=== PATIENT | female | born 1940 | race Two or more races ===

== ENCOUNTER 2019-03-20 08:58 | Inpatient (IN) | payer OTHER, MEDICARE ==
[~2019-03-20] VITALS: Ht 162.6 cm; Wt 64.0 kg
[2019-03-20 10:10] LABS: Basophils # (auto) 0 uL; Basophils % (auto) 0.6 % (0.0-2.0); Eosinophils # (auto) 0 uL; Eosinophils % (auto) 0.1 % (0.0-7.0); Hematocrit 37.8 % (36.0-46.0); Hemoglobin 12.2 g/dL (12.2-16.2); Lymphocytes % (auto) 12.4 % (10.0-50.0); Mean Corpuscular Hemoglobin 29.9 pg (28.0-32.0); Mean Corpuscular Hgb Conc. 32.4 g/dL (32.0-36.0); Mean Corpuscular Volume 92.4 fL (80.0-100.0); Monocytes # (auto) 0.5 uL; Monocytes % (auto) 6.5 % (0.0-12.0); Neutrophils # (auto) 6.4 uL; Neutrophils % (auto) 80.4 % (37.0-80.0); Platelet Count (auto) 308 10^3/uL (140-450); Red Blood Cells 4.09 10^6/uL (4.0-5.20); Red Cell Distribution Width 14.7 % (11.8-14.3); White Blood Cell 7.9 10^3/uL (4.4-10.8)
[2019-03-20 10:26] LABS: BUN/Creatinine Ratio 24.5; Calcium 7.9 mg/dL (8.5-10.1); Potassium 4.2 mmol/L (3.5-5.1)
[2019-03-20 10:29] LABS: Bilirubin, Total 0.7 mg/dL (0.2-1.0); Total Protein 6.4 g/dL (6.4-8.2)
[2019-03-20] MEDS ORDERED: ALBUTEROL SULF 2.5 MG/0.5ML(0.5%) NEB SOLN NEB ONE (13:15)
[2019-03-20] MEDS ORDERED: cefTRIAXone 1GM/50ML D5W 50 ML IV ONE (13:15)
[2019-03-20] MEDS ORDERED: FUROSEMIDE 40 MG/4 ML VIAL IV ONE (13:15)
[2019-03-20] MEDS ORDERED: IPRATROPIUM BROM 0.5 MG/2.5ML INH SOL NEB ONE (13:15)
[2019-03-20] MEDS ORDERED: [UNRECOGNIZED DRUG - CODE] PO (14:34)
[2019-03-20] MEDS ORDERED: ALBUAER3 (14:34)
[2019-03-20] MEDS ORDERED: LEVO-28 (14:34)
[2019-03-20] MEDS ORDERED: IOHEXOL 350 MG/ML 100ML IJ ONE (15:41)
[2019-03-20 15:48] LABS: Urine Bacteria NONE SEEN /hpf (None Seen); Urine Blood TRACE /uL (Negative); Urine Hyaline Cast FEW /lpf (0 - 2); Urine Specific Gravity 1.011 (1.001-1.035); Urine WBC 2 /hpf (0 - 5)
[2019-03-20] MEDS ORDERED: methylPREDNISolone SOD SUCC 125 MG/2 ML VL IV ONE (16:00)
[2019-03-20] MEDS ORDERED: diphenhdrAMINE HCL 50 MG/1 ML VL IV ONE (16:00)
[2019-03-20] MEDS ORDERED: methylPREDNISolone SOD SUCC 125 MG/2 ML VL ONE (16:03)
[2019-03-20] MEDS ORDERED: diphenhdrAMINE HCL 50 MG/1 ML VL ONE (16:03)
[2019-03-20] MEDS ORDERED: TEMAZEPAM 15 MG CAP PO PRN (17:15)
[2019-03-20] MEDS ORDERED: ACETAMINOPHEN 500 MG TAB PO PRN (17:15)
[2019-03-20] MEDS ORDERED: PROMETHAZINE HCL 25 MG/ML 1ML IV PRN (17:15)
[2019-03-20] MEDS ORDERED: MORPHINE SULFATE 4 MG/ML SYR/VIAL IV PRN (17:15)
[2019-03-20] MEDS ORDERED: DEXTROSE (50%) 50ML SYRG IV PRN (17:15)
[2019-03-20] MEDS ORDERED: traMADol HCL 50 MG TAB PO PRN (17:15)
[2019-03-20] MEDS ORDERED: ALBUTEROL SULF 2.5 MG/0.5ML(0.5%) NEB SOLN NEB PRN (17:15)
[2019-03-20] MEDS ORDERED: LACTULOSE 20Gm/30ML SOLN PO PRN (17:15)
[2019-03-20] MEDS ORDERED: NITROGLYCERIN 0.4 MG SL TAB SL PRN (17:15)
[2019-03-20] MEDS ORDERED: MORPHINE SULF INJ 2 MG/ML SYRINGE 1ML IV PRN (17:15)
[2019-03-20] MEDS: ALBUTEROL SULF 2.5 MG/0.5ML(0.5%) NEB SOLN NEB SCH (19:27)
[2019-03-20] MEDS: IPRATROPIUM BROM 0.5 MG/2.5ML INH SOL NEB SCH (19:27)
[2019-03-20 19:31] VITALS: BP 146/70
[2019-03-20] MEDS: InsuLIN REG 1unit/0.01ml Soln (100units/ml) SC SCH ×2 (20:36→23:17)
[2019-03-20] MEDS: ACCU-CHEK COMFORT CURVE STRIP VI SCH ×2 (20:36→23:25)
--- NOTE | 2019-03-20 21:21 | NUR ---
Telemetry admit from LEOPOLDO SHEEHAN,SLIM admitted to Telemetry unit; no SBAR received. Patient oriented by Tan,RN resource RN and LUANN ROMERO, primary RN, to unit, room, bed, and unit policies regarding patient care and visiting hours. Patient now on continuous telemetry monitoring, tele box #26 and telemetry reading on arrival to unit is [address] Patient placed on bedside oxygen @ 4lpm via n/c, weighed by bedscale and encouraged to call if she needs something. All questions and concerns addressed, patient verbalized understanding. Bed in low position and locked. HOB in high Lau's. Pt's call light by her R hand.
[2019-03-20 21:30] VITALS: BP 134/74
[2019-03-20 22:00] VITALS: BP 136/74
[2019-03-20] MEDS: CARVEDILOL 3.125 MG TAB PO SCH (23:03)
[2019-03-20] MEDS: ATORVASTATIN 20 MG TAB PO SCH (23:03)
[2019-03-20] MEDS: SODIUM CHLOR 0.9% PF (SALINE LOCK) 10ML VIAL/SYR IV SCH (23:24)
[2019-03-21] MEDS: ALBUTEROL SULF 2.5 MG/0.5ML(0.5%) NEB SOLN NEB SCH ×4 (00:21→19:37)
[2019-03-21] MEDS: IPRATROPIUM BROM 0.5 MG/2.5ML INH SOL NEB SCH ×4 (00:21→19:37)
--- NOTE | 2019-03-21 03:55 | NUR ---
This RN entered pt's room rounding to find pt soundly sleeping holding n/c in her R hand. O2 sat 87. Pt roused by this RN with voice and gentle stim. N/C replaced with O2 first at 3 lpm then increased to 4 lpm as pt's O2 sat not responding. O2 sat increased to 95. Pt dropping off to sleep easily and soundly. POC BG 206; therefore 6U Regular insulin given subcutaneously in in R arm.
[2019-03-21] MEDS: ACCU-CHEK COMFORT CURVE STRIP VI SCH ×5 (04:15→20:13)
[2019-03-21] MEDS: InsuLIN REG 1unit/0.01ml Soln (100units/ml) SC SCH ×5 (04:16→20:13)
[2019-03-21] MEDS: SODIUM CHLOR 0.9% PF (SALINE LOCK) 10ML VIAL/SYR IV SCH ×3 (04:17→21:36)
[2019-03-21 05:04] VITALS: BP 112/72
[2019-03-21 06:07] LABS: Potassium 3.6 mmol/L (3.5-5.1)
[2019-03-21 06:22] LABS: Albumin 2.9 g/dL (3.4-5.0); Bilirubin, Total 0.4 mg/dL (0.2-1.0); Calcium 8.1 mg/dL (8.5-10.1); Total Protein 6.1 g/dL (6.4-8.2)
--- NOTE | 2019-03-21 08:00 | NUR ---
Opening Shift Note Assumed care of patient, resting with eyes closed, wakes easily to sound/touch. No S/S of distress/SOB or pain. Instructed on POC and to call for assist PRN, will continue to monitor for changes Q1hr and PRN.
--- NOTE | 2019-03-21 08:30 | NUR ---
Blood sugar Patient's blood sugar is 52. She is alert and oriented, but tired. She was given orange juice and instructed to eat as much of her breakfast as she can. She ate all of her orange, some waffle, eggs, and drank tea.
[2019-03-21 09:00] VITALS: BP 103/64
[2019-03-21] MEDS ORDERED: LEVOFLOXACIN 500MG 100 ML IV SCH (10:00)
[2019-03-21] MEDS: FUROSEMIDE 40 MG/4 ML VIAL IV SCH (10:01)
[2019-03-21] MEDS: NITROGLYCERIN 0.2MG/HR TOPICAL PATCH TD SCH (10:02)
[2019-03-21] MEDS: PANTOPRAZOLE 40 MG TAB PO SCH (10:03)
[2019-03-21] MEDS: ENALAPRIL MALEATE 2.5 MG TAB PO SCH (10:03)
[2019-03-21] MEDS: ENOXAPARIN SOD 40 MG/0.4 ML SYRINGE SC SCH (10:03)
[2019-03-21] MEDS: POTASSIUM CHL 20 Meq TABLET PO SCH (10:03)
[2019-03-21] MEDS: ASPirin 81 mg TAB PO SCH (10:04)
[2019-03-21] MEDS: CARVEDILOL 3.125 MG TAB PO SCH ×2 (10:04→21:37)
[2019-03-21 10:40] LABS: Cholesterol 181 mg/dL (< 200); HDL Cholesterol 42 mg/dL (40-59); LDL Cholesterol 129 mg/dL (< 100); Triglycerides 65 mg/dL (< 150)
[2019-03-21 13:00] VITALS: BP 114/66
[2019-03-21] MEDS: cefTRIAXone 1GM/50ML D5W 50 ML IV SCH (16:41)
[2019-03-21 18:13] VITALS: BP 102/52
--- NOTE | 2019-03-21 19:36 | NUR ---
Opening Shift Note Assumed care of patient, awake and alert X 4. No S/S of distress/SOB. Bed is in lowest position and locked. Call light within reach. Board updated. Tele box number matches monitor and leads are in correct placement. Instructed on POC and to call for assist PRN, will continue to monitor for changes Q1hr and PRN.
[2019-03-21] MEDS: ATORVASTATIN 20 MG TAB PO SCH (21:37)
[2019-03-21 22:16] VITALS: BP 104/55
[2019-03-22] MEDS: ACCU-CHEK COMFORT CURVE STRIP VI SCH ×6 (00:09→23:00)
[2019-03-22] MEDS: ALBUTEROL SULF 2.5 MG/0.5ML(0.5%) NEB SOLN NEB SCH ×4 (00:20→18:32)
[2019-03-22] MEDS: IPRATROPIUM BROM 0.5 MG/2.5ML INH SOL NEB SCH ×4 (00:20→18:32)
[2019-03-22] MEDS: InsuLIN REG 1unit/0.01ml Soln (100units/ml) SC SCH ×6 (03:55→23:00)
[2019-03-22 05:13] VITALS: BP 114/65
[2019-03-22 05:37] VITALS: BP 102/61
[2019-03-22] MEDS: SODIUM CHLOR 0.9% PF (SALINE LOCK) 10ML VIAL/SYR IV SCH ×3 (06:25→23:32)
--- NOTE | 2019-03-22 07:30 | NUR ---
Morning note patient resting in bed with even and unlabored respirations, no distress noted. Instructed patient on POC, fall precautions and to call for assistance as needed. Patient verbalized understanding. Fall precautions in place with bed in lowest locked position and call light within reach. Will continue to monitor q1hr & PRN.
--- NOTE | 2019-03-22 08:05 | NUR ---
Patient ambulated to restroom with standby assistance Patient returned to bed with no complications. Staff member at patient's side for standby assistance.
--- NOTE | 2019-03-22 08:25 | NUR ---
was at bedside - Dr. Frida Dupree.
[2019-03-22] MEDS ORDERED: DEXTROSE (50%) 50ML SYRG IV PRN (08:30)
[2019-03-22] MEDS: ATORVASTATIN 20 MG TAB PO SCH ×2 (08:30→21:48)
[2019-03-22 09:00] VITALS: BP 92/60
[2019-03-22] MEDS: ASPirin 81 mg TAB PO SCH (09:53)
[2019-03-22] MEDS: ENOXAPARIN SOD 40 MG/0.4 ML SYRINGE SC SCH (09:53)
[2019-03-22] MEDS: GABAPENTIN 300 MG CAP PO SCH ×2 (09:53→21:48)
[2019-03-22] MEDS: AZITHROMYCIN 250 MG TAB PO SCH (09:53)
[2019-03-22] MEDS: NITROGLYCERIN 0.2MG/HR TOPICAL PATCH TD SCH (10:00)
[2019-03-22] MEDS: ENALAPRIL MALEATE 2.5 MG TAB PO SCH (10:00)
[2019-03-22] MEDS: POTASSIUM CHL 20 Meq TABLET PO SCH (10:02)
[2019-03-22] MEDS: CARVEDILOL 3.125 MG TAB PO SCH ×2 (10:04→21:48)
[2019-03-22] MEDS: PANTOPRAZOLE 40 MG TAB PO SCH (10:51)
[2019-03-22] MEDS: FUROSEMIDE 40 MG/4 ML VIAL IV SCH (10:51)
--- NOTE | 2019-03-22 12:28 | NUR ---
patient resting in bed with even and unlabored respirations, no distress noted. Bed alarm on for safety. Call light within reach. Will continue to monitor q1hr & PRN.
[2019-03-22 13:00] VITALS: BP 92/56
--- NOTE | 2019-03-22 16:29 | NUR ---
Gave Pt a durable power of assistant attorney general form. Explained to pt how to fill it out.
[2019-03-22 17:00] VITALS: BP 98/55
[2019-03-22] MEDS: cefTRIAXone 1GM/50ML D5W 50 ML IV SCH (17:20)
--- NOTE | 2019-03-22 17:43 | NUR ---
Visitors at bedside.
--- NOTE | 2019-03-22 18:53 | NUR ---
Closing note patient resting in bed with even and unlabored respirations, no distress noted. Call light within reach.
--- NOTE | 2019-03-22 19:22 | NUR ---
Care endorsed to PIPER Ruvalcaba.
[2019-03-22 22:00] VITALS: BP 91/47
[2019-03-23] VITALS (8 sets, daily range): BP systolic 89–118; BP diastolic 49–69
[2019-03-23] MEDS: IPRATROPIUM BROM 0.5 MG/2.5ML INH SOL NEB SCH ×4 (00:20→18:15)
[2019-03-23] MEDS: ALBUTEROL SULF 2.5 MG/0.5ML(0.5%) NEB SOLN NEB SCH ×4 (00:20→18:15)
[2019-03-23 05:48] LABS: Basophils # (auto) 0 uL; Basophils % (auto) 0.6 % (0.0-2.0); Eosinophils # (auto) 0.3 uL; Hematocrit 36.2 % (36.0-46.0); Hemoglobin 11.7 g/dL (12.2-16.2); Lymphocytes # (auto) 1.8 uL; Lymphocytes % (auto) 23.1 % (10.0-50.0); Mean Corpuscular Hgb Conc. 32.4 g/dL (32.0-36.0); Mean Corpuscular Volume 92.6 fL (80.0-100.0); Monocytes # (auto) 0.5 uL; Neutrophils # (auto) 5.1 uL; Neutrophils % (auto) 65.3 % (37.0-80.0); Platelet Count (auto) 266 10^3/uL (140-450); Red Blood Cells 3.91 10^6/uL (4.0-5.20); Red Cell Distribution Width 14.1 % (11.8-14.3); White Blood Cell 7.8 10^3/uL (4.4-10.8)
[2019-03-23 05:58] LABS: Potassium 3.5 mmol/L (3.5-5.1)
[2019-03-23 06:02] LABS: BUN/Creatinine Ratio 29.5; Magnesium 2.3 mg/dL (1.6-2.6)
[2019-03-23] MEDS: ACCU-CHEK COMFORT CURVE STRIP VI SCH ×4 (06:21→21:50)
[2019-03-23] MEDS: InsuLIN REG 1unit/0.01ml Soln (100units/ml) SC SCH ×4 (06:22→22:00)
[2019-03-23] MEDS: SODIUM CHLOR 0.9% PF (SALINE LOCK) 10ML VIAL/SYR IV SCH ×3 (06:32→21:48)
--- NOTE | 2019-03-23 07:30 | NUR ---
PATIENT OFF UNIT, FOR PROCEDURE CARDIAC CATH
--- NOTE | 2019-03-23 07:32 | NUR ---
OPENING patient was alert, spoke to her real quick as she was going to procedure, will f/u with morning assessment, when she returns
[2019-03-23] MEDS ORDERED: LIDOCAINE 2%HCL (LOCAL ANESTH.) INJ 20ML MDV ONE (07:34)
[2019-03-23] MEDS ORDERED: IOHEXOL 350 MG/ML 100ML IJ ONE ×3 (07:34→08:46)
[2019-03-23] MEDS ORDERED: fentaNYL CITRATE 100 MCG/2 ML VL ONE (07:36)
[2019-03-23] MEDS ORDERED: ANGIOMAX 250 MG VIAL IV ONE (07:36)
[2019-03-23] MEDS ORDERED: MIDAZOLAM HCL 1MG/1ML-2 ML VIAL ONE (07:36)
[2019-03-23] MEDS ORDERED: SODIUM CHL 0.9% 50 ML ONE (07:37)
[2019-03-23] MEDS ORDERED: methylPREDNISolone SOD SUCC 125 MG/2 ML VL ONE (07:44)
[2019-03-23] MEDS ORDERED: diphenhdrAMINE HCL 50 MG/1 ML VL ONE (07:44)
[2019-03-23] MEDS ORDERED: FAMOTIDINE (10MG/ML) 2ML VL IV ONE (07:44)
[2019-03-23] MEDS ORDERED: ASPirin 325 MG TAB ONE (08:55)
[2019-03-23] MEDS ORDERED: CLOPIDOGREL 300 MG TAB ONE (08:55)
[2019-03-23] MEDS: FUROSEMIDE 40 MG/4 ML VIAL IV SCH (10:00)
[2019-03-23] MEDS: AZITHROMYCIN 250 MG TAB PO SCH (10:00)
[2019-03-23] MEDS: CARVEDILOL 3.125 MG TAB PO SCH ×2 (10:00→21:49)
[2019-03-23] MEDS: NITROGLYCERIN 0.2MG/HR TOPICAL PATCH TD SCH (10:00)
[2019-03-23] MEDS: ASPirin 81 mg TAB PO SCH (10:00)
[2019-03-23] MEDS: ENALAPRIL MALEATE 2.5 MG TAB PO SCH (10:00)
[2019-03-23] MEDS: ENOXAPARIN SOD 40 MG/0.4 ML SYRINGE SC SCH (10:00)
[2019-03-23] MEDS: POTASSIUM CHL 20 Meq TABLET PO SCH (10:00)
[2019-03-23] MEDS: PANTOPRAZOLE 40 MG TAB PO SCH (10:00)
[2019-03-23] MEDS: GABAPENTIN 300 MG CAP PO SCH ×2 (10:00→21:50)
[2019-03-23] MEDS: cefTRIAXone 1GM/50ML D5W 50 ML IV SCH (16:30)
--- NOTE | 2019-03-23 18:28 | NUR ---
Respiratory note: INCREASED FIO2 TO 3L AT THIS TIME
--- NOTE | 2019-03-23 19:00 | NUR ---
OPENING SHIFT NOTE Assumed care of patient, who is A&Ox4. Currently on 3L O2 via NC with no c/o SOB at this time. Patient denies the use of o2 at home. Denies pain at this time. At baseline, patient is able to ambulate independently; she is currently ambulating with minimal assistance due to numbness in bilateral feet and generalized weakness. Dressing to right groin is CDI. Area is soft and non tender with no bruising or bleeding noted. POC discussed with patient and all questions answered. Bed is in low locked position with side rails up x2. Call light is within reach and patient encouraged to call for assistance when needed. Will continue to monitor for changes PRN.
[2019-03-23] MEDS: ATORVASTATIN 20 MG TAB PO SCH (21:49)
[2019-03-24] MEDS: IPRATROPIUM BROM 0.5 MG/2.5ML INH SOL NEB SCH ×3 (00:26→12:07)
[2019-03-24] MEDS: ALBUTEROL SULF 2.5 MG/0.5ML(0.5%) NEB SOLN NEB SCH ×3 (00:26→12:07)
--- NOTE | 2019-03-24 03:13 | NUR ---
Patient assisted to restroom to void. Assisted back into bed upon completion. Patient tolerated well. Placed on bedside O2 at 3Lpm. Will continue to monitor for changes PRN.
[2019-03-24 05:15] LABS: Basophils # (auto) 0 uL; Basophils % (auto) 0.2 % (0.0-2.0); Eosinophils # (auto) 0 uL; Eosinophils % (auto) 0.1 % (0.0-7.0); Hematocrit 34.9 % (36.0-46.0); Hemoglobin 11.9 g/dL (12.2-16.2); Lymphocytes # (auto) 0.6 uL; Lymphocytes % (auto) 6.7 % (10.0-50.0); Mean Corpuscular Hemoglobin 30.6 pg (28.0-32.0); Mean Corpuscular Volume 90.2 fL (80.0-100.0); Monocytes # (auto) 0.7 uL; Monocytes % (auto) 7.2 % (0.0-12.0); Neutrophils # (auto) 8.1 uL; Neutrophils % (auto) 85.8 % (37.0-80.0); Nucleated Red Blood Cells % 0.1 %; Platelet Count (auto) 264 10^3/uL (140-450); Red Blood Cells 3.87 10^6/uL (4.0-5.20); Red Cell Distribution Width 13.7 % (11.8-14.3); White Blood Cell 9.4 10^3/uL (4.4-10.8)
[2019-03-24 05:27] LABS: Calcium 8.3 mg/dL (8.5-10.1); Magnesium 2.3 mg/dL (1.6-2.6); Potassium 4.2 mmol/L (3.5-5.1)
[2019-03-24 05:29] LABS: BUN/Creatinine Ratio 33.7
[2019-03-24 05:30] VITALS: BP 91/48
[2019-03-24] MEDS: SODIUM CHLOR 0.9% PF (SALINE LOCK) 10ML VIAL/SYR IV SCH (06:40)
[2019-03-24] MEDS: ACCU-CHEK COMFORT CURVE STRIP VI SCH ×2 (06:40→11:30)
[2019-03-24] MEDS: InsuLIN REG 1unit/0.01ml Soln (100units/ml) SC SCH ×2 (07:16→11:30)
[2019-03-24 08:00] VITALS: BP 93/51
[2019-03-24] MEDS ORDERED: LEVOFLOXACIN 500 MG TAB PO ONE (09:00)
[2019-03-24] MEDS: PANTOPRAZOLE 40 MG TAB PO SCH (09:30)
[2019-03-24] MEDS: GABAPENTIN 300 MG CAP PO SCH (09:30)
[2019-03-24] MEDS: ASPirin 81 mg TAB PO SCH (09:30)
[2019-03-24] MEDS: ENALAPRIL MALEATE 2.5 MG TAB PO SCH (09:33)
[2019-03-24] MEDS: ENOXAPARIN SOD 40 MG/0.4 ML SYRINGE SC SCH (09:33)
[2019-03-24] MEDS: NITROGLYCERIN 0.2MG/HR TOPICAL PATCH TD SCH (09:34)
[2019-03-24] MEDS: CARVEDILOL 3.125 MG TAB PO SCH (10:00)
[2019-03-24] MEDS: FUROSEMIDE 40 MG/4 ML VIAL IV SCH (10:00)
[2019-03-24] MEDS: POTASSIUM CHL 20 Meq TABLET PO SCH (10:00)
[2019-03-24] MEDS ORDERED: CLOPIDOGREL BISULFATE 75 MG TAB PO SCH (10:00)
--- NOTE | 2019-03-24 10:41 | NUR ---
I faxed home health/home oxygen order to [facility]-requesting authorization for [facility] and [facility] for home oxygen.
[2019-03-24 12:07] VITALS: BP 100/59
[2019-03-24 14:44] VITALS: BP 99/53
--- NOTE | 2019-03-24 14:49 | NUR ---
assessment Patient is a 78 year old female who is alert and oriented. Patients cognitive abilities are intact. Prior to admission patient lived home with a friend and functioned independently until her house clears escrow. Patient informed me she is able to care for her own ADLs. Per patient she will return home to her prior living arrangements post discharge and will have transport home. Patient has no need for DME. Patient informed me her PCP is Dr Rhianna Villegas. Patient has a consult for home health and home 02. Patient is agreeable. I informed patient she has a right to speak to a social insurance specialist regarding all care. I informed patient she has a right to participate in any and all discharge planning. Patient does not have a POA and advanced directive. I have offered patient information on POA and advanced directives. I informed the patient the advantages and benefits of having an Advanced Directive. Patient verbalized understanding and agreed to discharge plan home. Addendum: 03/24/19 at 1452 by Cortney PARKER Amended: Links added.
--- NOTE | 2019-03-24 15:08 | NUR ---
D/C Planning Per consult for home health for safety evaluation. Contacted [facility] Ph:) Fax:) faxed medical records. Per Avril from [facility] Pt has been accepted and service to start within 48hrs upon d/c day. Informed SHAKIR Massey for authorization. Advised PIPER Barahona. Addendum: 03/24/19 at 1511 by GABRIELE CHAVEZ Amended: Links added.
[2019-03-24 16:23] VITALS: BP 88/56
--- NOTE | 2019-03-24 17:14 | NUR ---
closing Discharge instructions given as ordered. Encourage to follow up with PMD as instructed. All questions and concerns addressed. Patient verbalized understanding. Medication reconciliation form completed and copy given to patient. Home medications held in Pharmacy returned to patient, and needed vaccines given. IV removed with catheter intact, pressure dressing applied. Telemetry unit returned to ICU. Patient taken to vehicle via wheelchair with all personal belongings, accompanied by staff and family member. No distress noted at time of departure.
[2019-04-06] MEDS ORDERED: FURO1TAB31 PO (17:20)
[2019-04-06] MEDS ORDERED: ASPI81CH43 PO (17:20)
[2019-04-06] MEDS ORDERED: CLOP75TA28 PO (17:20)
[2019-04-06] MEDS ORDERED: ATOR20TA50 PO (17:20)
[2019-04-06] MEDS ORDERED: ENAL2.5T PO (17:20)
== END 2019-03-24 17:20 | disposition home health service (06) | DRG 246 ==
LOC: ER 08:58 → TELE 08:59 → TELE-CENTR 21:24
PROVIDERS: ADMIT Internal Medicine; ATTEND Internal Medicine
PROC: 027035Z Dilation of Coronary Artery, One Artery with Two Drug-eluting Intraluminal Devices, Percutaneous Approach (ICD-10-PCS; principal; 2019-03-23)
PROC: B2111ZZ Fluoroscopy of Multiple Coronary Arteries using Low Osmolar Contrast (ICD-10-PCS; 2019-03-23)
DX: I11.0 Hypertensive heart disease with heart failure (principal); J18.9 Pneumonia, unspecified organism; J96.00 Acute respiratory failure, unspecified whether with hypoxia or hypercapnia; E44.0 Moderate protein-calorie malnutrition; J91.8 Pleural effusion in other conditions classified elsewhere; I50.23 Acute on chronic systolic (congestive) heart failure; E11.42 Type 2 diabetes mellitus with diabetic polyneuropathy; I25.10 Atherosclerotic heart disease of native coronary artery without angina pectoris; Z82.49 Family history of ischemic heart disease and other diseases of the circulatory system; Z90.710 Acquired absence of both cervix and uterus; Z68.24 Body mass index [BMI] 24.0-24.9, adult; Z83.3 Family history of diabetes mellitus; Z91.19 Patient's noncompliance with other medical treatment and regimen; Z98.61 Coronary angioplasty status; Z91.013 Allergy to seafood
CPT/HCPCS: 36415; 71045; 71275; 80048; 80053; 80061; 81001; 82550; 82962; 83036; 83735; 83880; 84484; 85025; 85379; 87040; 92928; 92929; 93005; 93306; 93454; 94640; 96365; 96375; 97163; 99152; 99153; C1874; C1887; G0378; J0696; J1815; J1956; J2250; J3490